=== PATIENT | female | born 1950 | race Caucasian/White ===

== ENCOUNTER 2016-12-06 09:15 | Day surgery (SDC) | payer MEDICARE ==
[~2016-12-06] VITALS: Ht 154.9 cm; Wt 95.5 kg
[2016-12-06] VITALS (15 sets, daily range): BP systolic 121–150; BP diastolic 48–80; PULSE 65–78; RESP 13–21; O2SAT 93–98
[2016-12-06] MEDS: Lactated Ringer's 1,000 ML IV SCH ×3 (05:00→10:27)
[~2016-12-06 09:15] MED LIST: ASCO-294 PO; ATEN100T PO; CALC-56 PO; Dexamethasone 4 mg/mL Inj IVPUSH PRN; EPHEDrine Sulfate 50 mg/mL Inj IVPUSH PRN; HYDR25TA4 PO; HYDROmorphone 1 mg/mL Inj IVPUSH PRN; KTC2C15 TP; LOSA50TA3 PO; Labetalol 5 mg/mL 4 mL Inj IV PRN; Lactated Ringer's 1,000 ML IV SCH; Lactated Ringer's 500 ML IV PRN; METH5TAB5 PO; MULT-1018 PO; MetoCLOpramide 5 mg/mL 2 mL Inj IVPUSH PRN; OMEG-38 PO; OMEP20TA24 PO; OXYC1TAB24 PO; Ondansetron 2 mg/mL 2 mL Inj IVPUSH PRN; Phenylephrine 10,000 mCg/mL Inj IVPUSH PRN; SIMV40TA5 PO; VENL150C98 PO; VIT1TABL83 PO; hydrALAZINE 20 mg/mL Inj IVPUSH PRN
[2016-12-06] MEDS ORDERED: Ondansetron 2 mg/mL 2 mL Inj ONE (09:16)
[2016-12-06] MEDS ORDERED: Propofol 10 mg/mL 20 mL Inj ONE (09:16)
[2016-12-06] MEDS ORDERED: Glycopyrrolate 0.2 MG/ML 1mL Inj ONE (09:16)
[2016-12-06] MEDS ORDERED: Rocuronium 10 mg/mL 5 mL Inj ONE (09:16)
[2016-12-06] MEDS ORDERED: Dexamethasone 4 mg/mL Inj ONE (09:16)
[2016-12-06] MEDS ORDERED: fentaNYL-PF 50 mCg/mL 2 mL Inj ONE (09:16)
[2016-12-06] MEDS ORDERED: Ketamine 10 mg/mL 20 mL Inj ONE (09:16)
[2016-12-06] MEDS ORDERED: EPHEDrine/NS 5 mg/mL 5 mL Syringe ONE (09:16)
[2016-12-06] MEDS ORDERED: Succinylcholine Chloride 20 mg/mL 5 mL Inj ONE (09:16)
[2016-12-06] MEDS ORDERED: Phenylephrine/NS 100 mCg/mL 10 mL Syringe IVPUSH ONE (09:16)
--- NOTE | 2016-12-06 10:33 | PCM.HPANE ---
Patient Data Date of Service: Dec 06, 2016 Surgeon Admitting Provider: Attending Provider:Calvin Denson MD Primary Care Physician:Magdy Godoy MD Other Provider:Jermaine Bobo Anesthesia Reason for Visit Hyperthyroidism Ht/WT & BMI Height (Feet): 5 Height (Inches): 1 Weight (Kilograms): 94.1 Body Mass Index 39.00 Allergies Coded Allergies: No Known Allergies (Verified , 10/06/12) Past Anesthesia History Anesthesia History: Denies:: Anesthesia Reactions, Malignant Hyperthermia Diabetes History Hx Diabetes?: Yes Current Bedside Blood Glucose: 142 MRSA MRSA: No Medications Hypertension Medication: Yes Home Meds Incl Beta Fercho: Yes (ATENOLOL) Date Beta Fercho Taken: Dec 06, 2016 Time Beta Fercho Taken: 0730 Reported Medications Ascorbate Calcium (Vitamin C)500 Mg Tablet1,000 Mg PO DAILY 12/04/16 Vit B Comp/C/FA/Iron/Vit E (Vitamin B Complex Tablet)1 Each Tablet1 Each PO DAILY 12/04/16 Venlafaxine ER 150 Mg Cap.er.73s095 Mg PO DAILY Ref 0 12/04/16 Simvastatin 40 Mg Wdawae46 Mg PO HS 30 Days Ref 0 12/04/16 Omeprazole Magnesium (Prilosec Otc)20 Mg Tablet.dr20 Mg PO DAILY #1 PKG Ref 0 12/04/16 oxyCODONE-Acetaminophen 5-325 mg 1 Each Tablet1 Tab PO Q4H PRN For Pain Ref 0 12/04/16 Multivitamin (Multi Vitamin Daily)1 Each Tablet1 Each PO DAILY 30 Days Ref 0 12/04/16 Methimazole 5 Mg Tablet5 Mg PO DAILY 30 Days 12/04/16 Ketoconazole 15 Gm Cream..g.15 Gm TP PRN skin irritation 12/04/16 Hydrochlorothiazide 25 Mg Brejvu08 Mg PO DAILY 30 Days Ref 0 12/04/16 [place]-3/Dha/Epa/Fish Oil (Fish Oil 1,000 mg Softgel)1 Each Capsule1 Each PO BID 12/04/16 Losartan Potassium (Cozaar)50 Mg Jxyfck39 Mg PO BID 12/04/16 Calcium/Magnesium (Calcium with Magnesium Tab)1 Each Tablet1 Each PO DAILY 12/04/16 Atenolol 100 Mg Jmnuap944 Mg PO DAILY Ref 0 12/04/16 Discontinued Reported Medications Simvastatin-Expunged Drug, Choose New Med! 40 Mg Eqslwz16 Mg PO NIGHTLY INPATIENT MAX DOSE 40 MG 09/29/12 Methimazole-Expunged Drug, Do Not Renew! (Tapazole-Expunged Drug, Do Not Renew!) 5 Mg Tablet5 Mg PO DAILY 09/29/12 [Vitamin B Complex] No Conflict Check Po Daily 09/29/12 Atenolol-Expunged Drug, Do Not Renew! 100 Mg Czigol16 Mg PO DAILY 09/29/12 MULTIVITAMIN-Expunged Drug, Do Not Renew! (MULTI VITAMIN -Expunged Drug, Do Not Renew!)1 Each Tablet1 Each PO DAILY 09/29/12 Venlafaxine-Expunged Drug, Do Not Renew! (Effexor XR-Expunged Drug, Do Not Renew !)75 Mg Cap.er75 Mg PO DAILY 09/29/12 Omeprazole-Expunged Drug, Do Not Renew! 20 Mg Capcr20 Mg PO USE DIR./BEF MLS 09/29/12 Hydrocod/APAP-Expunged, Do Not Renew! (Hydrocod/APAP 7.5/325-Expunged, Do Not Renew!)1 Tab Tablet1 Tab PO BID PRN 09/29/12 Losartan-Expunged Drug, Do Not Renew! 50 Mg Dzvkzx47 Mg PO BID 09/29/12 Hydrochlorothiazide-Expunged, Do Not Renew! 12.5 Mg Akercp20.5 Mg PO DAILY 09/29/12 oxyCODONE-Expunged, Do Not Renew! (OxyCONTIN-Expunged, Do Not Renew!)10 Mg Tab.sr.12h10 Mg PO TID DO NOT CRUSH OR CHEW 09/29/12 History History of ENT Problems?: Yes HEENT History: Positive for:: Dysphagia (c/o fullness neck, multiple thyroid nodules present) Sinus Problem Denies:: Hearing Problem Denture Type: None Teeth Condition: Within Normal Limits Hx of Heart Problems?: Yes Cardiovascular History: Positive for:: Heart Murmur (pt states had murmur at , no other records for this) Hypertension Hx of Respiratory Problem?: No Respiratory History: Denies:: Asthma Oxygen Administration Pneumonia Tuberculosis Use of C-PAP Machine Hx Neurologic Problems?: No Neurological History: Denies:: Headaches Hx of GI Problems?: Yes Hx of Problems?: No Genitourinary History: Denies:: Kidney Stones Urinary Tract Infection (past hx of) Female Hx: Denies:: Currently (hysterectomy) Pelvic Inflammatory Problems with Breasts? Skin History: Denies:: History Skin Disorders? Pressure Ulcers Hx Musculoskeletal Problems?: Yes Musculoskeletal History: Positive for:: Back Injury (lami L3-S1) Denies:: Joint Replacement Musculoskeletal Trauma Hx of Psycho/Social Problems?: Yes Psycho Social History: Positive for:: Hx Depression Hx Surgeries?: Yes (ABD. HYST,APPY,TONSILLECTOMY) Hx Any Other Health Problems?: Yes Other History: Positive for:: Endocrine Disease (hyperthyroid current admission problem) Hospitalization Thyroid Disease (multiple nodules right and left thyroid) Denies:: Cancer History Blood Transfusions: Denies:: Blood Transfuse Reaction Blood Transfusions Hx Diabetes: YesBedside Blood Glucose: 142 Hx Alcohol Use: YesAlcoholic Drinks Per Day: one glass wine weeklyHx Substance Use: NoHave You Smoked inLast 12 mo: No Stop/Bang S-Snoring: Do You Snore Loudly: No T-Tired: feel tired, fatigued: Yes O-Obsered: Observed not breath: No P-Blood Pressure: treated: Yes B- Body Mass Index > 35 kg/m2: Yes A- Age over 50: Yes N- Neck Large Circumference: No G- Gender Male: No JOSE C Total Score: 4 JOSE C Risk Assessment: High Risk, =/>3 Yes Risk Assessment Category Category 1A: Patient has history of documented sleep apnea, and HAS NOT received any narcotic, sedative or anesthesia administration during this stay. Category 1B: Patient has history of documented sleep apnea, and HAS received any narcotic , sedative or anesthesia administration during this stay Category 2: Patient has SUSPECTED Obstructive Sleep Apnea, and HAS received any narcotic , sedative or anesthesia administration during this stay. Category 3: Patient has SUSPECTED Obstructive Sleep Apnea and HAS NOT received narcotic, sedative or anesthesia administration during this stay. Category 4: Outpatient in Procedural Areas with known sleep apnea or who screen positive for High Risk via the STOP/BANG questionnaire. Exam Exam Vital Signs Vital Signs Date Time Temp Pulse Resp B/P Pulse Ox O2 Delivery O2 Flow Rate FiO2 12/06/16 09:42 36 65 16 121/69 95 Room Air General Appearance: Alert, Oriented X3, Cooperative, No Acute Distress HEENT/AIRWAY: MP 1 Lungs: Clear to Auscultation, Normal Air Movement Heart: Exam Unremarkable, Regular Rate/Rhythm, No Murmurs/Rubs/Gallops Meds/Labs/Diagnostics Admission Meds Current Medications Lactated Ringer's (Lr) 1,000 ml @ 120 mls/hr Q8H20M IV Last administered on t 09:32; Start 12/06/16 at 05:00; Stop 12/06/16 at 13:19 Bedside Blood Glucose: 142 Plan Impression Patient chart reviewed, patient interviewed and anesthestic plan with risks, benefits, and alternatives discussed, and informed consent obtained. NPO per Anesth. Guidelines: Yes ASA Physical Status: ASA2 Mod Systemic Disease Anesthetic Plan: GA Bene/Risks/Altern/Consents: Yes HP Complete Prior to Induction: Yes Rajendra Holcomb MD Dec 06, 2016 10:33
[2016-12-06] MEDS ORDERED: Bupivacaine-MPF 0.25%/EPI 30 mL Inj INFILTRATE ONE (10:55)
[2016-12-06] MEDS ORDERED: Lactated Ringer's 1,000 ML IV ONE (11:21)
--- NOTE | 2016-12-06 13:00 | NUR ---
received to room 1006 from PACU alert, pleasant, comfortable, denies nausea, VSS, anterior neck incision a little swollen and bruised, keeping iced. pt taking clear liquids without problems/nausea
[2016-12-06] MEDS: fentaNYL-PF 50 mCg/mL 2 mL Inj IVPUSH PRN ×3 (13:08→13:45)
--- NOTE | 2016-12-06 13:10 | OP ---
[address] [address] OPERATIVE REPORT PATIENT: LEMUEL PATIÑO : 1950 MR#: [id number] ADMIT: 12/06/2016 JOB ID: [id number] DATE OF SURGERY: 12/06/2016 ANESTHESIA: General. PREOPERATIVE DIAGNOSIS(ES): 1. Hyperthyroidism. 2. Multinodular goiter. POSTOPERATIVE DIAGNOSIS(ES): OPERATION: Total thyroidectomy. SURGEON: Dr. Calvin Denson. PRECINCT COMMANDING OFFICER: 1. Willian Caldwell PA-C (The hotel administrative assistant was required for the safe timely completion of the case). 2. Epifanio Asif PA-C COMPLICATIONS: None. ESTIMATED BLOOD LOSS: Less than 10 mL. CONDITION: Satisfactory. SPECIMEN: 1. Right thyroid lobe and isthmus. 2. Left thyroid lobe. FINDINGS: Both recurrent laryngeal nerves were identified and preserved. A good candidate for the right superior parathyroid as well as the left superior parathyroid was identified. No inferior parathyroids were identified. Both identified parathyroids were preserved. SPECIMENS: 1. Right neck seborrheic keratosis. 2. Right thyroid. 3. Left thyroid. INDICATIONS/SIGNIFICANT HISTORY: The patient is a 66-year-old woman who I first saw about a year ago. At that time she had a diagnosis of hyperthyroidism and also had multiple thyroid nodules. An FNA of one of the nodules had demonstrated atypia and therefore her leasing professional referred her for consideration of total thyroidectomy. The patient wished to proceed with surgery but due to life circumstances the surgery was put off for essentially a year. She had remained on thyroid suppression with methimazole up until surgery. OPERATIVE TECHNIQUE: The patient was taken to the operating room and placed in the supine position. General anesthesia was administered. The neck was prepped and draped in standard surgical fashion. A procedural pause was performed. Local anesthetic was injected and a generous anterior cervical transverse incision was made. Dissection was carried down through the skin and subcutaneous tissue. Superior and inferior subplatysmal flaps were then raised. The strap muscles were then incised in the midline and sequentially elevated, both on the left and the right. I then began by mobilizing the right thyroid lobe. I created a small window between the isthmus and the trachea and transected this using an energy device. I then began to mobilize the superior pole, taking the vessels sequentially with the energy device. I then mobilized the inferior pole. I then retracted the right thyroid lobe through the wound and gently dissected to identify the right recurrent laryngeal nerve. This was identified. A candidate for the superior parathyroid was also identified and gently dissected off the thyroid to leave it in situ. I gently dissected the nerve away from the thyroid and completely removed the thyroid, leaving a very small amount of thyroid tissue at the ligament of Curiel where it was immediately adjacent to the nerve. The specimen was then handed off. Attention was turned to the left side, which was mobilized in similar fashion, with identification of the left recurrent laryngeal nerve and superior parathyroid and preservation both. The specimen was then handed off. Valsalva was performed by the anesthesiologist and good hemostasis noted. The strap muscles were then reapproximated with 3-0 Vicryl. The platysma was reapproximated with interrupted 3-0 Vicryl. A running 4-0 Monocryl was then used to close the skin. Dermabond was applied. At the beginning the case there was a rather large seborrheic keratosis immediately adjacent to where my incision was going to be, which was excised and sent for specimen. MERCEDES
[2016-12-06] MEDS ORDERED: Calcium GLUCO 10% (mEq) Inj 13.95 MEQ in Dextrose 5% 100 ML IV PRN (13:55)
--- NOTE | 2016-12-06 14:22 | PCM.ANEP1 ---
Post Anesthesia PACU Phase 1 Assessment Date of Service: Dec 06, 2016 Vital Signs Vital Signs Date Time Temp Pulse Resp B/P Pulse Ox O2 Delivery O2 Flow Rate FiO2 12/06/16 14:10 72 18 126/52 96 Nasal Cannula 3 12/06/16 14:00 36.9 68 15 130/60 94 Nasal Cannula 3 12/06/16 13:50 70 20 128/61 97 Nasal Cannula 4 12/06/16 13:40 73 18 124/67 94 Nasal Cannula 4 12/06/16 13:30 71 18 121/48 98 Nasal Cannula 4 12/06/16 13:20 74 14 133/53 97 Nasal Cannula 4 12/06/16 13:10 74 20 139/66 97 Nasal Cannula 4 12/06/16 13:00 76 21 146/65 96 Nasal Cannula 4 12/06/16 12:55 76 21 132/55 96 Simple Mask 10 12/06/16 12:50 37.3 77 21 148/65 95 Simple Mask 10 12/06/16 12:45 78 21 146/67 93 Simple Mask 10 12/06/16 12:42 37.7 75 13 144/74 93 Simple Mask 10 12/06/16 09:42 36 65 16 121/69 95 Room Air Anesthetic Administered: GA Level of Alertness: Awake, talking Pain: No Nausea or Vomiting: No CV Function & Hydration Stable: Yes Airway Device: Endotrachial Tube Oxygen Delivery: Room Air Lungs: Clear to Auscultation, Normal Air Movement PACU Phase 2 Assessment Complications: No Follow up Care: N/A Patient Instructions Provided: N/A Rajendra Holcomb MD Dec 06, 2016 14:22
[2016-12-06] MEDS: Dextrose 5% 0.45% NaCl 1,000 ML IV SCH (16:58)
--- NOTE | 2016-12-06 23:20 | NUR ---
Pain/sore throat C/o sore throat. Given oxycodone and states this is helpful, as well as popsicles and ice. Denies incisional pain and has been keeping ice on this. Well-approximated without drainage, although continues with some swelling and bruising to the area. Denies difficulty swallowing and taking fluids well.
[2016-12-07 00:31] VITALS: BP 130/70; PULSE 70; RESP 17; O2SAT 95
[2016-12-07 00:33] LABS: APPEARANCE,URINE CLEAR (CLEAR,HAZY); COLOR,URINE YELLOW (YELLOW); OCCULT BLOOD,URINE NEGATIVE (NEGATIVE); UROBILINOGEN,URINE NORMAL (NORMAL)
[2016-12-07] MEDS: Dextrose 5% 0.45% NaCl 1,000 ML IV SCH ×2 (02:02→08:37)
[2016-12-07 05:27] VITALS: BP 125/73; PULSE 62; RESP 17; O2SAT 94
[2016-12-07] MEDS ORDERED: Pantoprazole 20 mg ER24 Tablet PO SCH (06:30)
--- NOTE | 2016-12-07 07:18 | NUR ---
Pain/mobility States oxycodone effective for throat pain. Has been keeping ice on incision and swelling is reduced. Incision is approximated without signs of infection. Up to bathroom with standby assist 0- denies dizziness and gait is steady. Hoping for discharge today.
[2016-12-07] MEDS ORDERED: CALCIUM PO SCH (08:30)
[2016-12-07] MEDS ORDERED: MAGNESIUM PO SCH (08:30)
[2016-12-07] MEDS ORDERED: Venlafaxine XR 75 mg ER24 Capsule PO SCH (08:30)
--- NOTE | 2016-12-07 08:34 | PCM.DISURG ---
Surgical Discharge Instruction Date of Service Dec 07, 2016 Dates of Hospitalization Date of Hospital Admission Providers Admitting Physician: Primary Care Physician: Magdy Godoy MD Attending Physician: Calvin Denson MD Discharge Diagnosis Discharge Diagnosis multinodular goiter, hyperthyroidism Diet Discharge Diet: No restrictions Activity Discharge Activity-General: No driving while taking narcotic Dressing and Incisional Care Hygiene: May shower Additional Instructions Discharge Instructions Take Calcium carbonate (Tums or equivalent) 1.5 gm three times a day with meals for the next week. If you experience muscle cramps, spasms, or tingling around the mouth, take 8 Tums and call the contour sander surgeon. Follow Up Plan Follow Up Plan 2-3 weeks with Surg PA Calvin Denson MD Dec 07, 2016 08:34
[2016-12-07] MEDS ORDERED: CALC500T53 PO (08:37)
[2016-12-07] MEDS ORDERED: LEVO150T5 PO (08:37)
[2016-12-07] MEDS ORDERED: OXYC5TAB72 PO (08:37)
[2016-12-07 08:59] VITALS: BP 115/66; PULSE 69; RESP 18; O2SAT 92
--- NOTE | 2016-12-07 09:04 | PROG NOTE ---
[address] [address] PROGRESS NOTE PATIENT: LEMUEL PATIÑO : 1950 MR#: [id number] ADMIT: 12/06/2016 JOB ID: [id number] DATE: 12/07/2016 SUBJECTIVE: The patient is seen postoperative day one from her total thyroidectomy for multinodular goiter in the setting of hyperthyroidism. The patient is normal overnight. She tells me she feels great. She is eager to go home. OBJECTIVE: She has remained afebrile and hemodynamically normal. This morning she is alert and oriented and comfortable. Her incision is clean, dry and intact. Her neck is soft. Her PTH this morning is up to 11 from 9 yesterday. Her calcium down a little bit to 8.4. ASSESSMENT AND PLAN: This is a 66-year-old female, postoperative day one from total thyroidectomy for multinodular goiter in the setting of hyperthyroidism. The patient is going to go home today. I have provided her with a prescription for Synthroid. She will followup with her molding technician in the next few weeks. Also given her calcium to be taken for the next week three times a day. She can followup with my PA in a week or two.
--- NOTE | 2016-12-07 10:58 | NUR ---
Discharge Pt discharged home today at 10:30. Pt off floor with all belongings in the company of the nurse to private vehicle. Pt was provided with prescriptions, follow up instructions and education materials on thyroidectomy and meds. All pt questions were answered and pt voiced understanding.
--- NOTE | 2016-12-07 13:37 | PCM.DC.SUR ---
Discharge Summary Date of Service: Date of Hospital Admission: 12/06/2016 Date of Operation(s): 12/06/2016 Date of Discharge: Dec 07, 2016 at 10:22 Diagnosis at Time of Discharge Primary diagnoses: 1. Hyperthyroidism 2. Multiple thyroid nodules Other chronic conditions: 1. Hypertension 2. Prediabetes 3. Depression 4. Back pain 5. Former cigarette smoker Problems: Operation Total thyroidectomy Brief History and Physical: Mrs Talavera is a 65-year-old woman with a history of multinodular goiter and hyperthyroidism referred in consultation by Dr. Enrique regarding consideration for total thyroidectomy. She was first diagnosed with hypothyroidism in 2011 at which time she was started on methimazole. This was recently stopped by Dr. Enrique. A thyroid scan in March 2012 was unremarkable. She has had ultrasounds in 2010, 2014, and then again in October of this year. The most recent ultrasound demonstrated 3 stable right-sided nodules ranging in size from 0.7 cm to 2.7 cm. The left thyroid has a stable 3.6 cm nodule as well as a new 1.5 cm inferior nodule. The new left inferior nodule was aspirated with pathology demonstrating follicular lesion of undetermined significance. Given her history of hypothyroidism, multinodular goiter, and recent FNA demonstrating atypia she was referred for consideration of total thyroidectomy. She had no personal or family history of thyroid cancer. She had no history of neck irradiation. She complained of fullness in her neck. Consultants: None Hospital Course: The patient was admitted and underwent the above-mentioned operation without complication. She was stable for discharge the following morning. At the time of discharge she had neck fullness with a presumed small hematoma and no airway compromise. Her neck was soft. Her PTH was up to 11 from 9 postsurgically. Her calcium down a little bit to 8.4. She was not symptomatic. Pathology: Pending Disposition: The patient was discharged home on her first postsurgical day on oral Synthroid , and oral calcium supplement 3 times a day for 1 week. Follow-up Plan: She will follow-up with Dr. Enrique in endocrinology in the next few weeks. She will follow-up with a surgical PA in the surgery clinic in 2-3 weeks. Ascorbate Calcium (Vitamin C) 500 Mg Tablet 1,000 MG PO DAILY (Reported) Atenolol (Atenolol) 100 Mg Tablet 100 MG PO DAILY (Reported) Calcium Carbonate (Calcium Carbonate) 200 Mg Tab.chew 1,500 MG PO TID Calcium/Magnesium (Calcium with Magnesium Tab) 1 Each Tablet 1 EACH PO DAILY ( Reported) Hydrochlorothiazide (Hydrochlorothiazide) 25 Mg Tablet 25 MG PO DAILY (Reported ) Ketoconazole (Ketoconazole) 15 Gm Cream..g. 15 GM TP PRN skin irritation ( Reported) Levothyroxine (Levothyroxine) 150 Mcg Tablet 150 MCG PO DAILYAC Losartan Potassium (Cozaar) 50 Mg Tablet 50 MG PO BID (Reported) Multivitamin (Multi Vitamin Daily) 1 Each Tablet 1 EACH PO DAILY (Reported) [place]-3/Dha/Epa/Fish Oil (Fish Oil 1,000 mg Softgel) 1 Each Capsule 1 EACH PO BID (Reported) Omeprazole Magnesium (Prilosec Otc) 20 Mg Tablet.dr 20 MG PO DAILY (Reported) Simvastatin (Simvastatin) 40 Mg Tablet 20 MG PO HS (Reported) Venlafaxine ER (Venlafaxine ER) 150 Mg Cap.er.24h 150 MG PO DAILY (Reported) Vit B Comp/C/FA/Iron/Vit E (Vitamin B Complex Tablet) 1 Each Tablet 1 EACH PO DAILY (Reported) oxyCODONE (oxyCODONE) 5 Mg Tablet 5-10 MG PO Q4H PRN PRN For Moderate Pain copies to: Jeremias Enrique MD; Magdy Godoy MD, Fred H PA-C Dec 07, 2016 13:37
--- NOTE | 2016-12-10 16:46 | PATH ---
SURGICAL PATHOLOGY Attending Physician:Calvin Denson MD CASE STATUS: Signed Out PATIENT NAME: LEMUEL PATIÑO PID: [id number] : 1950 DATE COLLECTED:12/06/2016 00:00 SPECIMEN: 1: Skin, biopsy 2: Thyroid, Lobectomy 3: Thyroid, Lobectomy CLINICAL HISTORY: HYPERTHYROID, MULTINODULAR GOITER 1). NECK, SEBORRHEIC KERATOSIS 2). RIGHT THYROID 3). LEFT THYROID FINAL DIAGNOSIS: 1.SKIN BIOPSY, NECK: SEBORRHEIC KERATOSIS. 2.RIGHT THYROID GLAND: MULTINODULAR GOITER. NO EVIDENCE OF MALIGNANCY. 3LEFT THYROID GLAND: MULTINODULAR GOITER: NO EVIDENCE OF MALIGNANCY. ICD10 L82.1 E04.2 GROSS DESCRIPTION: The specimens are received in formalin, labeled with the patient's name, and sublabeled as the following: (1) seborrheic keratosis; (2) right thyroid; (3) left thyroid. (1) The specimen consists of a kelley-white rubbery semi-papillary papule (0.7 x 0.6 x 0.4 cm). Ink code: black-resection margin. Section code: (1A) papule, bisected. Specimen entirely submitted. (2) The specimen consists of a thyroid gland right lobe (9.2 g, 4.0 x 2.8 x 2.8 cm). The capsule is livingston-brown smooth shiny and flat. The parenchyma is red-brown with diffuse and very dated semi-translucent nodularity (0.2 x 0.2 x 0.2 cm-2.0 x 1.7 x 1.6 cm). Ink code: purple-anterior; yellow-posterior; green-medial. Section code: (2A) superior pole, perpendicularly sectioned, entirely submitted; (2B, 2C) thyroid lobe, serially sectioned and submitted SI, field sales representative; (2D) inferior pole, perpendicularly sectioned, entirely submitted. (3) The specimen consists of a thyroid gland left lobe (9.31 g, 4.0 x 2.5 x 2.2 cm). The capsule is livingston-brown smooth shiny and flat. The parenchyma is red-brown with diffuse semi-translucent nodularity (0.6 x 0.4 x 0.3 cm-2.0 x 1.5 x 1.3 cm). Ink code: purple-anterior; yellow-posterior; green-medial. Section code: (3A) superior pole, perpendicularly sectioned, entirely submitted; (3B, 3C) thyroid lobe, serially sectioned and submitted SI, field sales representative; (3D) inferior pole, perpendicularly sectioned, entirely submitted. 12/08/16 JM MICRO DESCRIPTION: See diagnosis. ICD-9 CODES: CPT CODES: 1: 18791 2: 20378 3: 76899 Electronically Signed Out Amanda Yost MD [facility] [address], [place] [address] Technical component performed at [facility], [facility] [address], [place], [address]
== END 2016-12-07 10:22 | disposition home or self-care (01) ==
LOC: SAS 09:15 → OSC 13:49 → SAS 12-07 10:22
PROVIDERS: ATTEND General Practice
DX: E05.90 Thyrotoxicosis, unspecified without thyrotoxic crisis or storm (principal); E04.2 Nontoxic multinodular goiter; I10 Essential (primary) hypertension; E78.5 Hyperlipidemia, unspecified; R73.03 Prediabetes; F32.9 Major depressive disorder, single episode, unspecified; M85.80 Other specified disorders of bone density and structure, unspecified site; E66.01 Morbid (severe) obesity due to excess calories; M48.06 Spinal stenosis, lumbar region; Z90.710 Acquired absence of both cervix and uterus; Z87.891 Personal history of nicotine dependence; Z68.39 Body mass index [BMI] 39.0-39.9, adult
CPT/HCPCS: 36415; 60240; 80048; 81000; 82310; 83970; J0330; J1100; J2250; J2370; J2405; J3010; J7042; J7120